=== PATIENT | male | born 1960 | race Hispanic/Latino ===

== ENCOUNTER 2017-01-02 19:40 | Observation (INO) | payer OTHER ==
[2017-01-02 20:37] LABS: ABG ALLEN TEST YES; ARTERIAL BLOOD GAS HCO3 26.6 mmol/L (21-28); ARTERIAL BLOOD GAS PH 7.42 (7.35-7.45); ARTERIAL BLOOD GAS PO2 32 mm/Hg (80-100); BASO # 0.1 K/uL (0.0-0.2); BASO % 0.8 % (0.0-2.0); EOS # 0.5 K/uL (0.0-0.7); LYMPH # 1.5 K/uL (1.0-4.3); LYMPH % 14.7 % (20.0-40.0); MEAN CELL VOLUME 88.9 fl (80.0-94.0); MEAN CORPUSCULAR HGB CONC 33.8 g/dL (33.0-37.0); MEAN PLATELET VOLUME 7.5 fl (7.2-11.7); MONO # 0.7 K/uL (0.0-0.8); MONO % 7.1 % (0.0-10.0); NEUT # 7.3 K/uL (1.8-7.0); NEUT % 72.4 % (50.0-75.0); NRBC % 2.3 % (0.0-0.0); RED CELL DISTRIBUTION WIDTH 14.6 % (11.5-14.5); WHITE BLOOD COUNT 10.1 K/uL (4.8-10.8)
[2017-01-02 20:52] LABS: PARTIAL THROMBOPLASTIN TIME 33.8 Seconds (25.6-37.1)
[2017-01-02 21:11] LABS: ALB/GLOB RATIO 1.4 (1.0-2.1); ALKALINE PHOSPHATASE 62 U/L (38-126); ALT/SGPT 29 U/L (21-72); AST/SGOT 41 U/L (17-59); BILIRUBIN,TOTAL 0.6 mg/dl (0.2-1.3); BLOOD UREA NITROGEN 24 mg/dl (9-20); CARBON DIOXIDE 28 mmol/L (22-30); CHLORIDE 103 mmol/L (98-107); GFR AFRICAN-AMERICAN > 60; GLUCOSE,RANDOM 103 mg/dL (75-110); MAGNESIUM 2.2 MG/DL (1.6-2.3); PHOSPHOROUS 3.2 mg/dl (2.5-4.5); SODIUM 140 mmol/l (132-148); TOTAL PROTEIN 7.3 G/DL (6.3-8.2)
[2017-01-02] MEDS ORDERED: DiphenhydrAMINE 50 mg/ml Inj IVP STA (21:18)
--- NOTE | 2017-01-02 21:25 | ED PDOC ---
HPI: Chest Pain Time Seen by Provider: 01/02/17 20:08 Chief Complaint (Nursing): Chest Pain Chief Complaint (Provider): Chest Pain History Per: Patient Onset/Duration Of Symptoms: Sudden Onset (about 30 min prior to arrival) Current Symptoms Are (Timing): Still Present Additional Complaint(s): Vinnie is a 56 year old patient with a past medical history of deep vein thrombosis (DVT) and pulmonary embolism (PE) who presents to the Emergency Department complaining of sudden onset of left sided chest pain while resting. Patient states pain is constant and is worst with deep breathing associated with shortness of breath especially with exertion. Similar to previous episodes. Patient states he had PE last June 2015. States PE occurred due to immobilization in the past. Patient has status post resection of left leg mass abrasion 7 days ago (Monday, Dec 27). At that time, discontinued Xarelto and was on Lovenox for 5 days. Restarted Xarelto 2 nights ago. Denies cough, fever and changing surgical wound. Surgeon: Dr. Paulie Longoria ([facility]) Past Medical History Reviewed: Historical Data, Nursing Documentation, Vital Signs Vital Signs: Last Vital Signs Temp 98.2 F 01/03/17 12:09 Pulse 60 01/03/17 12:09 Resp 18 01/03/17 12:09 BP 114/71 01/03/17 12:09 Pulse Ox 100 01/03/17 14:38 - Medical History PMH: Deep Vein Thrombosis (x 1), Pulmonary Embolism (x 3) Denies: Chronic Kidney Disease - Family History Family History: States: No Known Family Hx - Home Medications Home Medications: Ambulatory Orders Medication Instructions Recorded Amoxicillin/Clavulanate [Augmentin 1 tab PO Q12 01/03/17 875 MG-125 MG Tab] Aspirin [Aspirin Chewable] 162 mg PO DAILY 01/03/17 Hydrocodone/Acetaminophen 1 tab PO Q8 PRN 01/03/17 [Hydrocodone-Acetamin 7.5-300] Rivaroxaban [Xarelto] 10 mg PO DAILY 01/03/17 - Allergies Allergies/Adverse Reactions: Allergies Allergy/AdvReac Type Severity Reaction Status Date / Time iodine Allergy RASH Verified 01/02/17 21:34 Review of Systems ROS Statement: Except As Marked, All Systems Reviewed And Found Negative Constitutional: Negative for: Fever Cardiovascular: Positive for: Chest Pain (left sided while at rest and constant worse with deep breathing) Respiratory: Positive for: Shortness of Breath (especially with exertion). Negative for: Cough Physical Exam - Reviewed Nursing Documentation Reviewed: Yes Vital Signs Reviewed: Yes - Physical Exam Appears: Positive for: Uncomfortable, In Acute Distress Head Exam: Positive for: ATRAUMATIC, NORMOCEPHALIC Skin: Positive for: Warm, Dry Eye Exam: Positive for: EOMI, PERRL ENT: Negative for: Pharyngeal Erythema, Tonsillar Exudate Neck: Positive for: Painless ROM, Supple Cardiovascular/Chest: Positive for: Regular Rate, Rhythm, Chest Non Tender. Negative for: Murmur Respiratory: Positive for: Normal Breath Sounds. Negative for: Wheezing, Respiratory Distress Gastrointestinal/Abdominal: Positive for: Soft. Negative for: Tenderness Back: Positive for: Normal Inspection. Negative for: Decreased ROM Lymphatic: Negative for: Adenopathy Neurologic/Psych: Negative for: Motor/Sensory Deficits - Laboratory Results Result Diagrams: 01/02/17 20:32 01/02/17 20:32 - ECG ECG Rhythm: Positive for: Normal ST Segment, Sinus Rhythm, Nonspecific Changes O2 Sat by Pulse Oximetry: 100 (RA) Pulse Ox Interpretation: Normal - Progress ED Course And Treament: EXAM: CT Angiography Chest With Intravenous Contrast CLINICAL HISTORY: 56 years old, male; Pain; Chest pain; Left-sided chest pain; Patient HX: HX of dvt and p. E. ; Additional info: Left sided chest pain h/o pe. Sent phy. Doc. TECHNIQUE: Axial computed tomographic angiography images of the chest with intravenous contrast using pulmonary embolism protocol. All CT scans at this facility use one or more dose reduction techniques, viz.: automated exposure control; ma/kV adjustment per patient size (including targeted exams where dose is matched to indication; i.e. head); or iterative reconstruction technique. Coronal and sagittal reformatted images were created and reviewed. CONTRAST: 95 mL of [id number] administered intravenously. COMPARISON: No relevant prior studies available. FINDINGS: Limitations: Suboptimal opacification of the pulmonary arteries. Pulmonary arteries: No pulmonary embolism is identified. Some of the more distal pulmonary arteries are poorly opacified and cannot be adequately evaluated. Aorta: No acute findings. No thoracic aortic aneurysm. Lungs: Atelectasis posterior lungs. No mass. Pleural space: Unremarkable. No significant effusion. No pneumothorax. Heart: Unremarkable. No cardiomegaly. No significant pericardial effusion. No evidence of RV dysfunction. Bones/joints: There are flowing osteophyte formations in the mid and lower thoracic spine compatible with DISH. No acute fracture. No dislocation. Soft tissues: Unremarkable. Lymph nodes: Unremarkable. No enlarged lymph nodes. IMPRESSION: No pulmonary embolism is identified. Some of the more distal pulmonary arteries are poorly opacified and cannot be adequately evaluated. Thank you for allowing us to participate in the care of your patient. Medical Decision Making Medical Decision Making: Time: 20:08 Impression: Chest Pain Differentials not limited to: PE, Acute Coronary Symptoms, Pleural Effusion, Pneumonia, Costochondritis, Pneumothorax Plan: - Type and Screen - Arterial Blood Gas Shock Panel - CT Angio Chest PE - EKG - B-Type Natriuretic Peptide - CMP - Magnesium - Phosphorous - Troponin I - Troponin I Q8H - Troponin I Q8H - CBC - Partial Thromboplastin Time - Prothrombin Time - Blood Culture Time: 20:11 - Discussed with Dr. Longoria (Patients Surgeon). Agrees with Work up. Time: 20:59 - Portable Chest X-Ray Time: 2115 - Benadryl 25 mg IVP - Solu-medrol 125 mg IVP - Sodium Chloride 0.9% 500 ml IV 00 mls/hr DW pt findings. Agrees with hospitalization for r/o ACS Scribe Attestation: Documented by Delvin Rasmussen, acting as a scribe for Cinthia Jackson MD. Provider Scribe Attestation: All medical record entries made by the Scribe were at my direction and personally dictated by me. I have reviewed the chart and agree that the record accurately reflects my personal performance of the history, physical exam, medical decision making, and the department course for this patient. I have also personally directed, reviewed, and agree with the discharge instructions and disposition. Disposition - Clinical Impression Clinical Impression: Chest pain - Disposition Disposition Time: 23:00 Condition: GUARDED - Pt Status Changed To: Hospital Disposition Of: Observation - POA Present On Arrival: Deep Vein Thrombosis / PE (history)
[2017-01-02] MEDS ORDERED: Sodium Chloride 0.9% 500 ML IV STA (21:26)
[2017-01-02] MEDS ORDERED: Sodium Chloride 0.9% 50 ML IV ONE (21:34)
[2017-01-02] MEDS ORDERED: Iodixanol 320 MG/ML 100 ML BOTTLE IV ONE (21:34)
[2017-01-02] MEDS ORDERED: DiphenhydrAMINE 50 mg/ml Inj ONE (21:38)
[2017-01-03] MEDS ORDERED: Amoxicillin-Clav 875-125 mg Tab PO STA (02:56)
[2017-01-03 03:32] VITALS: RESP 18
--- NOTE | 2017-01-03 08:25 | CARD ---
APPROVED REPORT EKG Measurement Heart [id number] <Conclusion> Normal sinus rhythm Possible Inferior infarct, age undetermined Abnormal ECG
[2017-01-03] MEDS ORDERED: Amoxicillin-Clav 875-125 mg Tab PO SCH (09:00)
--- NOTE | 2017-01-03 09:32 | RAD ---
HISTORY: chest pain COMPARISON: No prior. FINDINGS: LUNGS: No active pulmonary disease. PLEURA: No significant pleural effusion identified, no pneumothorax apparent. CARDIOVASCULAR: Normal. OSSEOUS STRUCTURES: No significant abnormalities. VISUALIZED UPPER ABDOMEN: Normal. OTHER FINDINGS: None. IMPRESSION: No active disease.
--- NOTE | 2017-01-03 10:49 | CT ---
PROCEDURE: CT Chest with contrast (Pulmonary Angiogram) HISTORY: left sided chest pain h/o PE COMPARISON: None available. TECHNIQUE: Axial computed tomography images were obtained of the chest in the pulmonary arterial phase of enhancement. Coronal and sagittal reformatted images were created and reviewed. Intravenous contrast dose: 95 mL Visipaque 320 Radiation dose: Total exam DLP = 382 mGy-cm. This CT exam was performed using one or more of the following dose reduction techniques: Automated exposure control, adjustment of the mA and/or kV according to patient size, and/or use of iterative reconstruction technique. FINDINGS: PULMONARY ARTERIES: Suboptimal opacification of the pulmonary arteries. No central pulmonary embolism. AORTA: No acute findings. No thoracic aortic aneurysm. LUNGS: Dependent atelectasis. No nodule, mass or pulmonary consolidation. Medial right upper lobe 4 millimeter nodule (series 5, image 61). Anterolateral left lower lobe 3 millimeter nodule (series 5, image 52). Left lower lobe 5 millimeter sub fissural nodule (series 5, image 54). PLEURAL SPACES: Unremarkable. No effusion or pneuomothorax. HEART: Unremarkable. No cardiomegaly. No significant pericardial effusion. LYMPH NODES: No lymphadenopathy. BONES, CHEST WALL: Diffuse idiopathic skeletal hyperostosis. No fracture or destructive lesion OTHER FINDINGS: Unremarkable. IMPRESSION: Slightly limited CT pulmonary angiogram. No central pulmonary embolus. Bilateral 3-5 millimeter pulmonary nodules as described above. Twelve month CT follow-up can be obtained in high-risk patient. Additional findings as above. Findings and recommendations conveyed to CHRISTIE Bateman by Dr. Mathis at 10:45 am on 01/03/2017.
--- NOTE | 2017-01-03 11:17 | CP.PCM.CON ---
History of Present Illness - History of Present Illness History of Present Illness: 56 y/o w/m admitted with chest pain Pains started while driving in [employer] after having a procedure on his left thigh by PMD Pt has PMH of metastatic Malignant Melanoma Multiple episodes of DVT, Pulmonary embolus has been on anticoagulants as an Out Patient Troponin: neg EKG: no acute changes Echo ordered Past Patient History - Past Medical History & Family History Past Medical History?: Yes - Past Social History Smoking Status: Never Smoked - CARDIAC Hx Cardiac Disorders: No - PULMONARY Hx Pulmonary Embolism: Yes (x 3) - HEENT Hx HEENT Problems: No - RENAL Hx Chronic Kidney Disease: No - ENDOCRINE/METABOLIC Hx Endocrine Disorders: No - HEMATOLOGICAL/ONCOLOGICAL Hx Chemotherapy: Yes - INTEGUMENTARY Hx Melanoma: Yes - MUSCULOSKELETAL/RHEUMATOLOGICAL Hx Falls: No - GASTROINTESTINAL Hx Gastrointestinal Disorders: No - GENITOURINARY/GYNECOLOGICAL Hx Genitourinary Disorders: No - PSYCHIATRIC Hx Substance Use: No - SURGICAL HISTORY Hx Surgeries: Yes Other/Comment: Hx Melanoma removal. cyst removal left thigh. - ANESTHESIA Hx Anesthesia: Yes Hx Anesthesia Reactions: No Meds Allergies/Adverse Reactions: Allergies Allergy/AdvReac Type Severity Reaction Status Date / Time iodine Allergy RASH Verified 01/02/17 21:34 - Medications Medications: Current Medications Amoxicillin/Clavulanate Potassium (Augmentin 875 Mg-125 Mg Tab) 1 tab PO Q12 [facility] PRN Reason: Protocol Last Admin: 01/03/17 08:48 Dose: 1 tab Aspirin (Aspirin Chewable) 162 mg PO DAILY [facility] Last Admin: 01/03/17 08:50 Dose: 162 mg Ibuprofen (Motrin Tab) 600 mg PO Q8 PRN PRN Reason: Pain, moderate (4-7) Rivaroxaban (Xarelto) 10 mg PO DAILY [facility] PRN Reason: Protocol Physical Exam - Respiratory Exam Respiratory Exam: NORMAL BREATHING PATTERN - Cardiovascular Exam Cardiovascular Exam: REGULAR RHYTHM Results - Vital Signs Recent Vital Signs: Last Vital Signs Temp 98.3 F 01/03/17 08:23 Pulse 52 L 01/03/17 08:23 Resp 18 01/03/17 08:23 BP 116/71 01/03/17 08:23 Pulse Ox 96 01/03/17 08:23 - Labs Result Diagrams: 01/02/17 20:32 01/02/17 20:32 Labs: Laboratory Results - last 24 hr 01/02/17 01/02/17 01/02/17 20:25 20:32 20:32 WBC RBC Hgb Hct MCV MCH MCHC RDW Plt Count MPV Neut % (Auto) Lymph % (Auto) [place] % (Auto) Eos % (Auto) Baso % (Auto) Neut # Lymph # [place] # Eos # Baso # PT INR APTT pCO2 44 pO2 32 L* HCO3 26.6 ABG pH 7.42 ABG Total CO2 29.9 H ABG O2 Saturation 76.8 L ABG Base Excess 3.4 H Aldo Test Yes ABG Potassium 4.0 Sodium 142.0 140 Chloride 108.0 H 103 Glucose 104 Lactate 0.8 FiO2 21.0 Potassium 4.0 Carbon Dioxide 28 Anion Gap 13 BUN 24 H Creatinine 0.9 Est GFR ( Amer) > 60 Est GFR (Non-Af Amer) > 60 Random Glucose 103 Calcium 9.0 Phosphorus 3.2 Magnesium 2.2 Total Bilirubin 0.6 AST 41 ALT 29 Alkaline Phosphatase 62 Troponin I < 0.0120 NT-Pro-B Natriuret Pep 24.0 Total Protein 7.3 Albumin 4.3 Globulin 3.0 Albumin/Globulin Ratio 1.4 Arterial Blood Potassium 4.0 Blood Type B POSITIVE Blood Type Confirm Antibody Screen Negative BBK History Checked No verified bt 01/02/17 01/02/17 01/02/17 20:32 20:32 20:40 WBC 10.1 RBC 4.95 Hgb 14.9 Hct 44.0 MCV 88.9 MCH 30.0 MCHC 33.8 RDW 14.6 H Plt Count 341 MPV 7.5 Neut % (Auto) 72.4 Lymph % (Auto) 14.7 L [place] % (Auto) 7.1 Eos % (Auto) 5.0 H Baso % (Auto) 0.8 Neut # 7.3 H Lymph # 1.5 [place] # 0.7 Eos # 0.5 Baso # 0.1 PT 13.1 INR 1.2 APTT 33.8 pCO2 pO2 HCO3 ABG pH ABG Total CO2 ABG O2 Saturation ABG Base Excess Aldo Test ABG Potassium Sodium Chloride Glucose Lactate FiO2 Potassium Carbon Dioxide Anion Gap BUN Creatinine Est GFR ( Amer) Est GFR (Non-Af Amer) Random Glucose Calcium Phosphorus Magnesium Total Bilirubin AST ALT Alkaline Phosphatase Troponin I NT-Pro-B Natriuret Pep Total Protein Albumin Globulin Albumin/Globulin Ratio Arterial Blood Potassium Blood Type Blood Type Confirm B POSITIVE Antibody Screen BBK History Checked 01/03/17 05:00 WBC RBC Hgb Hct MCV MCH MCHC RDW Plt Count MPV Neut % (Auto) Lymph % (Auto) [place] % (Auto) Eos % (Auto) Baso % (Auto) Neut # Lymph # [place] # Eos # Baso # PT INR APTT pCO2 pO2 HCO3 ABG pH ABG Total CO2 ABG O2 Saturation ABG Base Excess Aldo Test ABG Potassium Sodium Chloride Glucose Lactate FiO2 Potassium Carbon Dioxide Anion Gap BUN Creatinine Est GFR ( Amer) Est GFR (Non-Af Amer) Random Glucose Calcium Phosphorus Magnesium Total Bilirubin AST ALT Alkaline Phosphatase Troponin I < 0.0120 NT-Pro-B Natriuret Pep Total Protein Albumin Globulin Albumin/Globulin Ratio Arterial Blood Potassium Blood Type Blood Type Confirm Antibody Screen BBK History Checked Assessment & Plan (1) Chest pain Assessment and Plan: His pains at this time appear to be non cardiac if echo is normal , he can be discharged Status: Acute
--- NOTE | 2017-01-03 12:01 | CARD ---
APPROVED REPORT EXAM: Two-dimensional and M-mode echocardiogram with Doppler and color Doppler. Other Information Quality : GoodRhythm : NSR INDICATION Chest Pain 2D DIMENSIONS IVSd0.95 (0.7-1.1cm)LVDd5.24 (3.9-5.9cm) PWd0.96 (0.7-1.1cm)IVSs1.17 (0.8-1.2cm) LVDs3.31 (2.5-4.0cm)FS (%) 36.9 % PWs1.25 (0.8-1.2cm) M-Mode DIMENSIONS Left Atrium (MM)3.91 (2.5-4.0cm)IVSd1.06 (0.7-1.1cm) Aortic Root3.35 (2.2-3.7cm)LVDd4.76 (4.0-5.6cm) Aortic Cusp Exc.2.06 (1.5-2.0cm)PWd1.00 (0.7-1.1cm) IVSs1.38 cmFS (%) 26 % LVDs3.53 (2.0-3.8cm)PWs1.24 cm Mitral Valve MV E Ohorhdiu55.1cm/sMV DECEL [id number] A Zykgpwme77.5cm/s MV XEX78ucZ/A ratio1.3MVA (PHT)3.63cm2 TDI Lateral E' Peak V15.56cm/sMedial E' Peak V9.94cm/sE/Lateral E'3.5 E/Medial E'5.4 Pulmonary Valve PV Peak Kximplvr129.0cm/s LEFT VENTRICLE The left ventricle is normal size. There is normal left ventricular wall thickness. Left ventricle systolic function is normal. The Ejection Fraction is 60-65%. There is normal LV segmental wall motion. Transmitral Doppler flow pattern is Grade I-abnormal relaxation pattern. RIGHT VENTRICLE The right ventricle is normal size. There is normal right ventricular wall thickness. The right ventricular systolic function is normal. ATRIA The left atrium size is normal. The right atrium size is normal. AORTIC VALVE The aortic valve is normal in structure. No aortic regurgitation is present. There is no aortic valvular stenosis. MITRAL VALVE The mitral valve is normal in structure. There is no evidence of mitral valve prolapse. There is no mitral valve stenosis. There is no mitral valve regurgitation noted. TRICUSPID VALVE The tricuspid valve is normal in structure. There is no tricuspid valve regurgitation noted. PULMONIC VALVE The pulmonary valve is normal in structure. There is no pulmonic valvular regurgitation. GREAT VESSELS The aortic root is normal in size. The IVC is normal in size and collapses >50% with inspiration. PERICARDIAL EFFUSION The pericardium appears normal. <Conclusion> The left ventricle is normal size. There is normal left ventricular wall thickness. There is normal LV segmental wall motion. Left ventricle systolic function is normal. The Ejection Fraction is 60-65%. Transmitral Doppler flow pattern is Grade I-abnormal relaxation pattern.
[2017-01-03 12:09] VITALS: BP 114/71; PULSE 60; TEMP 98.2
--- NOTE | 2017-01-03 13:03 | CP.PCM.HP ---
History of Present Illness - History of Present Illness History of Present Illness: 56 year old male with hx of metastatic melanoma, deep vein thrombosis and pulmonary embolism who presents to the ED with complaint of sudden onset of left sided chest pain while at rest. Pain is constant , exacerbated by deep inspiration, with associated shortness of breath. Symtptoms were similair episodes in the past when patient had DVT/PE so he came to ED for evaluation. Patient had June 2015, after surgery of left leg to remove mass that turned out to be melanoma. He is s/p resection of left leg mass/ node 7 days ago (Monday, Dec 27). Xarelto was discontinued at that time and he was started on Lovenox for 5 days. Restarted Xarelto 2 nights ago at 10 mg, previously taking 20mg. This morning his chest pain/discomfort has resolved. Only has pain at incision site of left leg. 12 point review of systems otherwise negative PMD: at [facility]-heme/onc PMH: melanoma w/ mets, DVT, PE Medications : reviewd Allergy: Iodine Present on Admission - Present on Admission Any Indicators Present on Admission: Yes History of DVT/PE: Yes Past Patient History - Past Medical History & Family History Past Medical History?: Yes - Past Social History Smoking Status: Never Smoked - CARDIAC Hx Cardiac Disorders: No - PULMONARY Hx Pulmonary Embolism: Yes (x 3) - HEENT Hx HEENT Problems: No - RENAL Hx Chronic Kidney Disease: No - ENDOCRINE/METABOLIC Hx Endocrine Disorders: No - HEMATOLOGICAL/ONCOLOGICAL Hx Chemotherapy: Yes - INTEGUMENTARY Hx Melanoma: Yes - MUSCULOSKELETAL/RHEUMATOLOGICAL Hx Falls: No - GASTROINTESTINAL Hx Gastrointestinal Disorders: No - GENITOURINARY/GYNECOLOGICAL Hx Genitourinary Disorders: No - PSYCHIATRIC Hx Substance Use: No - SURGICAL HISTORY Hx Surgeries: Yes Other/Comment: Hx Melanoma removal. cyst removal left thigh. - ANESTHESIA Hx Anesthesia: Yes Hx Anesthesia Reactions: No Meds Allergies/Adverse Reactions: Allergies Allergy/AdvReac Type Severity Reaction Status Date / Time iodine Allergy RASH Verified 01/02/17 21:34 Physical Exam - Constitutional Appears: Well - Head Exam Head Exam: ATRAUMATIC, NORMAL INSPECTION, NORMOCEPHALIC - Eye Exam Eye Exam: EOMI, Normal appearance, PERRL - Respiratory Exam Respiratory Exam: Clear to Auscultation Bilateral, NORMAL BREATHING PATTERN - Cardiovascular Exam Cardiovascular Exam: REGULAR RHYTHM, +S1, +S2. absent: Diastolic murmur, Systolic Murmur - GI/Abdominal Exam GI & Abdominal Exam: Normal Bowel Sounds, Soft. absent: Distended, Guarding, Tenderness - Extremities Exam Extremities exam: Positive for: normal inspection Additional comments: left upper extremity: incision of anterior thigh/groin: no induration or erythema, appears swollen. no drainage Results - Vital Signs Recent Vital Signs: Last Vital Signs Temp 98.2 F 01/03/17 12:09 Pulse 60 01/03/17 12:09 Resp 18 01/03/17 12:09 BP 114/71 01/03/17 12:09 Pulse Ox 99 01/03/17 12:09 - Labs Result Diagrams: 01/02/17 20:32 01/02/17 20:32 Labs: Laboratory Results - last 24 hr 01/02/17 01/02/17 01/02/17 20:25 20:32 20:32 WBC RBC Hgb Hct MCV MCH MCHC RDW Plt Count MPV Neut % (Auto) Lymph % (Auto) [place] % (Auto) Eos % (Auto) Baso % (Auto) Neut # Lymph # [place] # Eos # Baso # PT INR APTT pCO2 44 pO2 32 L* HCO3 26.6 ABG pH 7.42 ABG Total CO2 29.9 H ABG O2 Saturation 76.8 L ABG Base Excess 3.4 H Aldo Test Yes ABG Potassium 4.0 Sodium 142.0 140 Chloride 108.0 H 103 Glucose 104 Lactate 0.8 FiO2 21.0 Potassium 4.0 Carbon Dioxide 28 Anion Gap 13 BUN 24 H Creatinine 0.9 Est GFR ( Amer) > 60 Est GFR (Non-Af Amer) > 60 Random Glucose 103 Calcium 9.0 Phosphorus 3.2 Magnesium 2.2 Total Bilirubin 0.6 AST 41 ALT 29 Alkaline Phosphatase 62 Troponin I < 0.0120 NT-Pro-B Natriuret Pep 24.0 Total Protein 7.3 Albumin 4.3 Globulin 3.0 Albumin/Globulin Ratio 1.4 Arterial Blood Potassium 4.0 Blood Type B POSITIVE Blood Type Confirm Antibody Screen Negative BBK History Checked No verified bt 01/02/17 01/02/17 01/02/17 20:32 20:32 20:40 WBC 10.1 RBC 4.95 Hgb 14.9 Hct 44.0 MCV 88.9 MCH 30.0 MCHC 33.8 RDW 14.6 H Plt Count 341 MPV 7.5 Neut % (Auto) 72.4 Lymph % (Auto) 14.7 L [place] % (Auto) 7.1 Eos % (Auto) 5.0 H Baso % (Auto) 0.8 Neut # 7.3 H Lymph # 1.5 Keith # 0.7 Eos # 0.5 Baso # 0.1 PT 13.1 INR 1.2 APTT 33.8 pCO2 pO2 HCO3 ABG pH ABG Total CO2 ABG O2 Saturation ABG Base Excess Aldo Test ABG Potassium Sodium Chloride Glucose Lactate FiO2 Potassium Carbon Dioxide Anion Gap BUN Creatinine Est GFR ( Amer) Est GFR (Non-Af Amer) Random Glucose Calcium Phosphorus Magnesium Total Bilirubin AST ALT Alkaline Phosphatase Troponin I NT-Pro-B Natriuret Pep Total Protein Albumin Globulin Albumin/Globulin Ratio Arterial Blood Potassium Blood Type Blood Type Confirm B POSITIVE Antibody Screen BBK History Checked 01/03/17 05:00 WBC RBC Hgb Hct MCV MCH MCHC RDW Plt Count MPV Neut % (Auto) Lymph % (Auto) [place] % (Auto) Eos % (Auto) Baso % (Auto) Neut # Lymph # [place] # Eos # Baso # PT INR APTT pCO2 pO2 HCO3 ABG pH ABG Total CO2 ABG O2 Saturation ABG Base Excess Aldo Test ABG Potassium Sodium Chloride Glucose Lactate FiO2 Potassium Carbon Dioxide Anion Gap BUN Creatinine Est GFR ( Amer) Est GFR (Non-Af Amer) Random Glucose Calcium Phosphorus Magnesium Total Bilirubin AST ALT Alkaline Phosphatase Troponin I < 0.0120 NT-Pro-B Natriuret Pep Total Protein Albumin Globulin Albumin/Globulin Ratio Arterial Blood Potassium Blood Type Blood Type Confirm Antibody Screen BBK History Checked Assessment & Plan - Assessment and Plan (Free Text) Assessment: 56 year old male with hx of melanoma , DVT, PE admitted for chest pain, with rule out PE. CT chest was negative for PE, +pulmonary nodules. Echo was WNL Labs were unremarkable. #Chest pain-resolved #History of DVT #History of PE #Melanoma -patient cleared for d/c by cardiology -normal echocardiogram -pt will follow up outpatient with his lower in supervisor/oncologist -continue xarelto as ordered case d/w Dr. Naidu
[2017-01-03 14:38] VITALS: O2SAT 100
== END 2017-01-03 14:18 | disposition home or self-care (01) ==
LOC: H.ER 19:40 → H.ERHOLD 23:39 → H.TEL 01-03 02:06
PROVIDERS: ADMIT Family Medicine; ATTEND Family Medicine
DX: R07.89 Other chest pain (principal); Z85.820 Personal history of malignant melanoma of skin; Z79.01 Long term (current) use of anticoagulants; Z86.711 Personal history of pulmonary embolism; Z86.718 Personal history of other venous thrombosis and embolism
CPT/HCPCS: 36415; 71010; 71275; 80053; 82803; 83735; 83880; 84100; 84484; 85025; 85610; 85730; 86850; 86900; 87040; 93005; 93306; 96374; 96375; 99285; G0378; J1200; J2930; J7040; Q9967